=== PATIENT | female | born 1960 | race Caucasian/White ===

== ENCOUNTER 2017-11-17 19:28 | Emergency (ER) | payer OTHER, SELFPAY ==
[2017-11-17 19:33] VITALS: BP 158/81; PULSE 87; RESP 20; TEMP 36.4; O2SAT 100
--- NOTE | 2017-11-17 19:38 | DI.RAD.S_ITS ---
PROCEDURE: XR LUMBAR SPINE 2-3V INDICATIONS: fall onto brick, low back pain TECHNIQUE: 3 views of the lumbar spine were acquired. COMPARISON: [facility], , L-SPINE WITHOUT CONTRAST, 09/17/2013, 12:17. FINDINGS: Bones: 5 [id number] vertebrae are present. There is trace retrolisthesis of L1 on L2, L2 and L3, L3 on L4, slightly more prominent when compared to prior exam. There is stable grade 1 anterolisthesis of L4 on L5.. Prominent disc space narrowing is present at L5-S1 as well as L1-L2, L2-L3 and L4-L5. Foraminal narrowing is present at L5-S1. No vertebral body compression fractures. No suspicious bony lesions. Soft tissues: Overlying bowel gas pattern is normal. No suspicious soft tissue calcifications. IMPRESSION: Multilevel degenerative changes without visualized fracture. Dictated by: Hermelinda Markham M.D. on 11/17/2017 at 20:36 Approved by: Hermelinda Markham M.D. on 11/17/2017 at 20:38
[2017-11-17 21:47] VITALS: BP 114/55; PULSE 79; RESP 15; O2SAT 100
--- NOTE | 2017-11-17 22:52 | ED.BACK ---
HPI - Back Pain/Injury General Chief Complaint: Back Pain/Injury Stated Complaint: Fell, back/hip/leg pain Time Seen by Provider: 11/17/17 21:13 Source: patient Mode of arrival: ambulatory Limitations: no limitations History of Present Illness HPI Narrative: Patient is a 56-year-old female who presents with back pain. She fell backwards off of 1 breaks she was actually starting to climb up a ladder but she did not fall off the ladder she had taken 1 step up on the brick fell backwards landing on her sacrum. No numbness or tingling that is new. She does have some tingling in her left foot which she has from chronic ongoing back issues. No changes in bowel or bladder habits. No head injury no loss of consciousness. MD Complaint: back pain Related Data Home Medications Medication Instructions Recorded Confirmed Cetirizine Hydrochloride (Zyrtec) #0 04/26/10 PredniSONE (Deltasone) 60 mg PO Q DAY #0 04/26/10 Previous Rx's Medication Instructions Recorded cyclobenzaprine 5 mg PO TID PRN #10 tab 11/17/17 Allergies Allergy/AdvReac Type Severity Reaction Status Date / Time Penicillins Allergy Verified 11/17/17 19:37 Sulfa (Sulfonamide Allergy Verified 11/17/17 19:37 Antibiotics) Review of Systems Review of Systems GENERAL: Denies chills, fatigue, malaise, fever, sweats, travel HEENT: Denies sinus pain, ear pain, sore throat, difficulty swallowing, neck pain RESPIRATORY: Denies dyspnea, cough, wheezing, hemoptysis, sputum. CARDIOVASCULAR: Denies chest pain, palpitations, orthopnea, edema GASTROINTESTINAL: Denies nausea, vomiting, abdominal pain, diarrhea, constipation, melena. : Denies dysuria, frequency, incontinence, hematuria, urinary retention, flank pain. MUSCULOSKELETAL: See HPI SKIN: No rash, no erythema, no pruritus NEUROLOGIC: Denies weakness, dizziness, headache, numbness, change in speech, confusion PSYCHIATRIC: No concerning psychosocial issues. 12 point review of systems is negative except for those stated above and HPI [facility] Medical History Healthy adult (Acute) Social History Smoking Status: Never smoker alcohol intake: never substance use type: does not use Exam Initial Vital Signs Initial Vital Signs: Vital Signs Temperature 97.5 F L 11/17/17 19:33 Pulse Rate 87 11/17/17 19:33 Respiratory Rate 20 11/17/17 19:33 Blood Pressure 158/81 H 11/17/17 19:33 Pulse Oximetry 100 11/17/17 19:33 GENERAL: Well-appearing, well-nourished and in no acute distress. HEENT: Head atraumatic,EOMI, pupils reactive, neck is supple CARDIOVASCULAR: Regular rate and rhythm without murmurs, rubs or gallops. RESPIRATORY: Breath sounds equal bilaterally, no wheezes rales or rhonchi. ABDOMEN: Soft, nontender. Normoactive bowel sounds all 4 quadrants. No guarding or rebound. BACK: No midline or vertebral tenderness. She is tender more in her sacral and gluteal regions. No sign of trauma no contusion : No CVA tenderness EXTREMITIES: Normal range of motion, no clubbing or edema. Neurovascularly intact NEUROLOGICAL: Alert and oriented x4.Normal gait and speech. Cranial nerves II through XII grossly intact. Sensation intact in saddle area SKIN: Warm, dry, no laceration, no petechiae, no rashes or lesions. Course Orders Ordered: ED Orders 11/17/17 19:38 XR lumbar spine 2-3V Stat 11/17/17 22:58 XR sacrum coccyx min 2V Stat Discontinued Medications Cyclobenzaprine HCl (Flexeril 10 Mg Prepack) 1 bottle MISC SEEINSTR ONE Stop: 11/17/17 22:59 Last Admin: 11/17/17 23:10 Dose: 1 bottle Ketorolac Tromethamine (Toradol) 60 mg IM NOW ONE Stop: 11/17/17 22:59 Last Admin: 11/17/17 23:09 Dose: 60 mg Vital Signs - 8 hr 11/17/17 21:47 11/17/17 23:10 Temperature 97.6 F Pulse Rate 79 78 Respiratory Rate 15 18 Blood Pressure [Left Arm] 114/55 L 122/61 H Pulse Oximetry 100 100 MDM - Back Pain/Injury Imaging Data L spine x-ray: Radiologist's impression: PROCEDURE: XR LUMBAR SPINE 2-3V INDICATIONS: fall onto brick, low back pain TECHNIQUE: 3 views of the lumbar spine were acquired. COMPARISON: [facility], , L-SPINE WITHOUT CONTRAST, 09/17/2013, 12:17. FINDINGS: Bones: 5 [id number] vertebrae are present. There is trace retrolisthesis of L1 on L2, L2 and L3, L3 on L4, slightly more prominent when compared to prior exam. There is stable grade 1 anterolisthesis of L4 on L5.. Prominent disc space narrowing is present at L5-S1 as well as L1-L2, L2-L3 and L4-L5. Foraminal narrowing is present at L5-S1. No vertebral body compression fractures. No suspicious bony lesions. Soft tissues: Overlying bowel gas pattern is normal. No suspicious soft tissue calcifications. IMPRESSION: Multilevel degenerative changes without visualized fracture. Dictated by: Hermelinda Markham M.D. on 11/17/2017 at 20:36 Sacral XR: Attestation: I personally reviewed and interpreted this imaging study as follows: My impression: No fracture Discharge Plan Departure Patient Disposition: Home, Self-Care Clinical Impression: Sacral back pain Discharge Date/Time: 11/18/17 00:16 Interventions: ED Discharge Assessment Last Done: 11/18/17 00:16 Instructions: DI Sacroiliac Joint Dysfunction Activity Restrictions/Additional Instructions: *You have been diagnosed with sacral pain *What to do: Light activity is encouraged, no heavy lifting or strenuous activity. *Continue to take medications as directed -Flexeril 1 tablet every 8 hr if needed for muscle spasm -Motrin 800 mg every 8 hr if needed for *Follow up with your primary care provider in 2-3 days *Return to ER if you should have weakness in lower extremities, loss of urine or stool or any new, worsening or concerning symptoms Prescriptions: New cyclobenzaprine 5 mg tablet 5 mg PO TID PRN (Reason: muscle spasm) Qty: 10 RF: 0 No Action PredniSONE (Deltasone) 60 mg PO Q DAY Qty: 0 RF: 0 Cetirizine Hydrochloride (Zyrtec) Qty: 0 RF: 0
--- NOTE | 2017-11-17 22:58 | DI.RAD.S_ITS ---
PROCEDURE: XR SACRUM COCCYX MIN 2V INDICATIONS: fall backwards TECHNIQUE: 3 views of the sacrum and coccyx acquired. COMPARISON: None. FINDINGS: Bones: No fractures or dislocations. No suspicious bony lesions. Soft tissues: Visualized bowel gas pattern is normal. No suspicious soft tissue densities. IMPRESSION: Negative for fracture Dictated by: Khalif Wylie M.D. on 11/18/2017 at 7:58 Approved by: Khalif Wylie M.D. on 11/18/2017 at 7:59
[2017-11-17] MEDS: KETOROLAC 60 MG/2 ML VIAL IM (23:09)
[2017-11-17 23:10] VITALS: BP 122/61; PULSE 78; RESP 18; TEMP 36.4; O2SAT 100
[2017-11-17] MEDS: CYCLOBENZAPRINE 10 MG PREPACK 1 BOTTLE MISC (23:10)
== END 2017-11-18 00:16 | disposition home or self-care (01) ==
PROVIDERS: Emergency Provider Emergency Medicine
DX: M53.3 Sacrococcygeal disorders, not elsewhere classified (principal); W18.30XA Fall on same level, unspecified, initial encounter
CPT/HCPCS: 72100; 72220; 96372; 99283; J1885

== ENCOUNTER → 2023-03-23 11:56 | Outpatient (CLI) | payer OTHER, SELFPAY ==
--- NOTE | 2023-03-23 11:58 | DI.MRI.S_ITS ---
PROCEDURE: MR LUMBAR SPINE WO CON INDICATIONS: Radiculopathy, lumbar region TECHNIQUE: Noncontrast sagittal T1 spin echo and T2 fast echo, sagittal STIR, and T2 fast spin echo through the lumbar spine. In cases with scoliosis, additional coronal T2 fast spin echo may be performed. COMPARISON: [facility], , L-SPINE WITHOUT CONTRAST, 09/17/2013, 12:17. FINDINGS: Image quality: Diagnostic Alignment and Curvature: Stable grade 1 anterolisthesis of L4 on L5. Mild retrolisthesis of L2 on L3 measuring approximately 4 mm. Bone Marrow: Marrow is of normal overall signal. No acute vertebral body compression fractures. There has been interval progression of moderate-severe multilevel lumbar spondylitic changes since the prior MRI dated 2013. Significant disc space loss at L2-3. Disc desiccation throughout. Increased degenerative endplate changes and endplate osteophyte formation. Spinal Cord: Conus medullaris terminates at the L1 level. Visualized cord demonstrates normal signal and size. Paraspinous Soft Tissues: No paravertebral masses. T12-L1: No significant neuroforaminal or spinal canal stenosis. L1-L2: Bilateral facet arthropathy. Ligamentum flavum hypertrophy. Minimal disc bulge. No significant neuroforaminal or spinal canal stenosis. L2-L3: Severe disc space loss. Disc desiccation. Increased degenerative endplate changes and endplate osteophyte formation. Symmetric disc bulge. Moderate bilateral facet arthropathy and ligamentum flavum hypertrophy. There is mild spinal canal stenosis. Moderate-severe left and severe right neuroforaminal stenosis at this level. L3-L4: Moderate bilateral facet arthropathy. Moderate ligamentum flavum hypertrophy. Disc desiccation and symmetric disc bulge. Findings result in mild-moderate spinal canal stenosis. Severe left greater than right bilateral neuroforaminal stenosis. L4-L5: Anterolisthesis of L4 on L5. Moderate bilateral facet arthropathy. Ligamentum flavum hypertrophy. Mild-moderate spinal canal stenosis. Moderate bilateral neuroforaminal stenosis. L5-S1: Mild bilateral facet arthropathy. Symmetric disc bulge. Moderate bilateral neuroforaminal stenosis. No significant spinal canal stenosis. IMPRESSION: Lumbar spine without acute abnormalities. Significant interval progression of moderate-severe multilevel, multifactorial lumbar spondylosis as detailed above by vertebral body level. Findings are most pronounced at L2-3 and L3-4. Dictated by: Chu Winters M.D. on 03/24/2023 at 10:23 Approved by: Chu Winters M.D. on 03/24/2023 at 10:32
== END ==
PROVIDERS: Referring Provider Physician Assistant Medical; Visit Provider Physician Assistant Medical
DX: M47.26 Other spondylosis with radiculopathy, lumbar region (principal); M47.27 Other spondylosis with radiculopathy, lumbosacral region
CPT/HCPCS: 72148

== ENCOUNTER → 2023-05-15 14:24 | Outpatient (CLI) | payer OTHER, SELFPAY ==
--- NOTE | 2023-05-15 14:25 | DI.RAD.S_ITS ---
PROCEDURE: XR LUMBAR SPINE MIN 4V INDICATIONS: BACK PAIN TECHNIQUE: 5 views of the lumbar spine acquired, including flexion and extension views. COMPARISON: [facility], CR, XR LUMBAR SPINE 2-3V, 11/17/2017, 19:15. FINDINGS: Bones: 5 nonrib-bearing vertebrae are present. Gas grade 1 anterolisthesis of L4 on L5. Stepwise grade 1 retrolisthesis of L1 on L2, L2 on L3, L3 on L4. Severe disc height loss at L2-3. L3 through S1 facet arthrosis. Soft tissues: Overlying bowel gas pattern is normal. No suspicious soft tissue calcifications. Flexion/extension: There is normal range of motion, with preserved normal alignment. IMPRESSION: Body moderate to severe, multilevel degenerative disc disease and lower lumbar facet arthrosis. Dictated by: Chandrakant Bella M.D. on 05/15/2023 at 15:29 Approved by: Chandrakant Bella M.D. on 05/15/2023 at 15:32
== END ==
PROVIDERS: PCP Physician Assistant Medical; Referring Provider Physical Medicine & Rehabilitation; Visit Provider Physical Medicine & Rehabilitation
DX: M51.36 Other intervertebral disc degeneration, lumbar region (principal); M47.816 Spondylosis without myelopathy or radiculopathy, lumbar region; M47.817 Spondylosis without myelopathy or radiculopathy, lumbosacral region; M51.26 Other intervertebral disc displacement, lumbar region; M43.16 Spondylolisthesis, lumbar region; M54.9 Dorsalgia, unspecified
CPT/HCPCS: 72110; 99214

== ENCOUNTER 2023-06-26 09:12 | Outpatient (CLI) | payer OTHER, SELFPAY ==
[2023-06-26] VITALS (8 sets, daily range): BP systolic 164–204; BP diastolic 67–95; PULSE 57–80; RESP 11–18; TEMP 36.3; O2SAT 98–100
--- NOTE | 2023-06-26 10:15 | DI.RAD.S_ITS ---
PROCEDURE: PAIN L/SI FACET INJ/BLK 1STL INDICATIONS: FACET ARTHROPATHY COMPARISON: None. FINDINGS: Fluoroscopic spot filming was performed to verify placement of spinal needles at the right L3, L4 and L5 level(s), as labeled on the films. Appropriate location(s) of the needle tip(s) was confirmed by injection of iodinated contrast. IMPRESSION: Intra procedural examination demonstrating appropriate positions of the needles. Dictated by: Pepe Landon M.D. on 06/26/2023 at 13:31 Approved by: Pepe Landon M.D. on 06/26/2023 at 13:32
[2023-06-26] MEDS: MIDAZOLAM 2 MG/2 ML VIAL IV (10:45)
[2023-06-26] MEDS: iopamidoL 15 ML VIAL 3 ML INJ (10:50)
[2023-06-26] MEDS: BUPIVACAINE 0.5% (PF) 10 ML VIAL 2 ML INJ (10:50)
--- NOTE | 2023-06-26 11:05 | PM.PROC.IR.1 ---
Date/Time/Diagnoses Date of procedure: 06/26/23 Time of procedure: 11:05 Pre-procedure diagnosis: 1. FACET ARTHROPATHY Post-procedure diagnosis: same Procedure Notes Procedure: 1. Right L3, L4 and L5 MB BLOCKS Indications: Kati is referred by FARIBA Mccray for treatment of Right Axial LBP. Physician: Heriberto Pulido Total Fluoroscopy time (seconds): 12 Total sedation minutes: 16 Complications: none Procedure in detail & Post-procedure care: DESCRIPTION OF PROCEDURE Fluoroscopically guided, contrast-controlled right L3, L4 and L5 medial branch blocks with 0.5cc of 0.5% Marcaine. Following review of allergy and review of potential side effects and complications, including, but not necessarily limited to, infection, allergic reaction, local tissue breakdown, nerve injury, paralysis, stroke and possible , the patient indicated that the patient understood and agreed to proceed. An informed consent document was signed by the patient, witnessed by a nurse, and placed in the patient's chart. After review of previous anaesthesic history and IV conscious sedation the patient was deemed safe to proceed with today?s procedure with IV conscious sedation as ASA class II designation. Safety time-out was performed to confirm patient ID, procedure to be performed and site of procedure. IV sedation was accomplished with a combination of 2mg of Versed was administered by the RN after DO order, titrated to patient comfort during the course of the procedure while the patient remained responsive to all verbal commands In the prone position, following sterile prep and drape of the lumbar region, the right L3, L4 and L5 anatomical location of the medial branch of the dorsal ramus was identified fluoroscopically. Subsequently an anesthetic skin wheal using 1% lidocaine solution was initiated at each of the anatomical spots. Subsequently then a 22-gauge 3.5-inch spinal needle was atraumatically introduced and advanced under fluoroscopic guidance at each of the corresponding sites at the right L3, L4 and L5 MB. After negative aspiration, 0.2 cc of Isovue 200 was injected, confirming placement without vascular or intrathecal uptake. Subsequently then 0.5cc of 0.5% Marcaine solution was injected at each of the corresponding sites at the right L3, L4 and L5 medial branch locations. The patient tolerated the procedure well without signs or symptoms of complications. The procedure tolerated the procedure well without signs or symptoms of complications prior to transfer to the recovery area continued monitoring without incident. Post-procedure, the patient was monitored initiating provocative activities to measure the amount of relief from block of the facetogenic pain. The patient reported a VAS of 7 prior to the procedure and a post-procedure VAS of 1. It has been a pleasure to assist in the diagnostic and therapeutic care of your patient. POST OP INSTRUCTIONS The patient was provided with a Pain Log to complete over the next several hours and subsequent days prior to the patient's follow up with the ordering physician. If the patient has steno pool supervisor relief to the solution applied, then they may be a candidate for medial branch rhizotomy. The patient is aware, was provided, once again, with a Pain Log and will follow up with the referring physician for review and clinical correlation.
== END 2023-06-26 11:20 | disposition home or self-care (01) ==
LOC: RAD 09:12
PROVIDERS: PCP Physician Assistant Medical; Referring Provider Physical Medicine & Rehabilitation; Visit Provider Physical Medicine & Rehabilitation
DX: M47.816 Spondylosis without myelopathy or radiculopathy, lumbar region (principal)
CPT/HCPCS: 64493; 64494; 99152; J2250

== ENCOUNTER 2023-08-12 09:38 | Outpatient (CLI) | payer OTHER, SELFPAY ==
[2023-08-12] VITALS (8 sets, daily range): BP systolic 131–175; BP diastolic 63–84; PULSE 59–72; RESP 12–16; TEMP 35.9; O2SAT 98–100
--- NOTE | 2023-08-12 10:15 | DI.RAD.S_ITS ---
PROCEDURE: PAIN L/SI FACET INJ/BLK 1STL INDICATIONS: Right L3-L4 and L5 medial branch block SA COMPARISON: [facility], , PAIN L/SI FACET INJ/BLK 1STL, 06/26/2023, 10:48. FINDINGS: Fluoroscopic spot filming was performed to verify placement of spinal needles at the right L3, L4 and L5 level(s), as labeled on the films. Appropriate location(s) of the needle tip(s) was confirmed by injection of iodinated contrast. IMPRESSION: Fluoroscopic guidance utilized for a right medial branch block. Dictated by: Chandrakant Bella M.D. on 08/12/2023 at 13:56 Approved by: Chandrakant Bella M.D. on 08/12/2023 at 13:56
[2023-08-12] MEDS: MIDAZOLAM 2 MG/2 ML VIAL IV (10:41)
[2023-08-12] MEDS: iopamidoL 15 ML VIAL 3 ML INJ (10:45)
[2023-08-12] MEDS: LIDOCAINE 2% INJ SDV 5ML 5 ML INJ (10:46)
--- NOTE | 2023-08-12 10:56 | P.PCN_ITS ---
Date/Time/Diagnoses Date of procedure: 08/12/23 Time of procedure: 10:56 Pre-procedure diagnosis: 1. FACET ARTHROPATHY Post-procedure diagnosis: same Procedure Notes Procedure: 1. RIGHT L3, L4 AND L5 DIAGNOSTIC MB BLOCKS Indications: Kati is referred by FARIBA Mccray for treatment of Bilateral Axial LBP. Physician: Heriberto Pulido Total Fluoroscopy time (seconds): 7 Total sedation minutes: 11 Complications: none Procedure in detail & Post-procedure care: DESCRIPTION OF PROCEDURE Fluoroscopically guided, contrast-controlled right L3, L4 AND L5 medial branch blocks with 0.5cc of 2% Lidocaine. Following review of allergy and review of potential side effects and complications, including, but not necessarily limited to, infection, allergic reaction, local tissue breakdown, nerve injury, paralysis, stroke and possible , the patient indicated that the patient understood and agreed to proceed. An informed consent document was signed by the patient, witnessed by a nurse, and placed in the patient's chart. After review of previous anaesthesic history and IV conscious sedation the patient was deemed safe to proceed with today's procedure with IV conscious sedation as ASA class II designation. Safety time-out was performed to confirm patient ID, procedure to be performed and site of procedure. IV sedation was accomplished with a combination of 2mg of Versed was administered by the RN after DO order, titrated to patient comfort during the course of the procedure while the patient remained responsive to all verbal commands In the prone position, following sterile prep and drape of the lumbar region, the right L3, L4 AND L5 anatomical location of the medial branch of the dorsal ramus was identified fluoroscopically. Subsequently an anesthetic skin wheal using 1% lidocaine solution was initiated at each of the anatomical spots. Subsequently then a 22-gauge 3.5-inch spinal needle was atraumatically introduced and advanced under fluoroscopic guidance at each of the corresponding sites at the right L3, L4 and L5 MB. After negative aspiration, 0.2cc of Isovue 200 was injected, confirming placement without vascular or intrathecal uptake. Subsequently then 0.5cc of 2% Lidocaine solution was injected at each of the corresponding sites at the right L3, L4 and L5 medial branch locations. The patient tolerated the procedure well without signs or symptoms of complications. The patient tolerated the procedure well without signs or symptoms of complications prior to transfer to the recovery area continued monitoring without incident. Post-procedure, the patient was monitored initiating provocative activities to measure the amount of relief from block of the facetogenic pain. The patient reported a VAS of 7 prior to the procedure and a post-procedure VAS of 1. It has been a pleasure to assist in the diagnostic and therapeutic care of your patient. POST OP INSTRUCTIONS The patient was provided with a Pain Log to complete over the next several hours and subsequent days prior to the patient's follow up with the ordering physician. If the patient has boulevard glassware replacer relief to the solution applied, then they may be a candidate for medial branch rhizotomy. The patient is aware, was provided, once again, with a Pain Log and will follow up with the referring physician for review and clinical correlation
== END 2023-08-12 11:11 | disposition home or self-care (01) ==
LOC: RAD 09:38
PROVIDERS: PCP Physician Assistant Medical; Referring Provider Physical Medicine & Rehabilitation; Visit Provider Physical Medicine & Rehabilitation
DX: M47.816 Spondylosis without myelopathy or radiculopathy, lumbar region (principal)
CPT/HCPCS: 64493; 64494; 99152; J2250

== ENCOUNTER 2023-11-11 07:26 | Outpatient (CLI) | payer OTHER, SELFPAY ==
[2023-11-11] VITALS (11 sets, daily range): BP systolic 141–168; BP diastolic 67–88; PULSE 55–69; RESP 10–18; TEMP 36.6; O2SAT 97–100
--- NOTE | 2023-11-11 08:00 | DI.RAD.S_ITS ---
PROCEDURE: PAIN L/S MED/LAT N RFA INDICATIONS: SPONDYLOSIS COMPARISON: None. FINDINGS: Fluoroscopic spot filming was performed to verify placement of spinal needles at the L3, L4 and L5 level(s), as labeled on the films. Appropriate location(s) of the needle tip(s) was confirmed by injection of iodinated contrast. IMPRESSION: Fluoro guidance was provided intraoperatively for right L3, L4 and L5 medial branch RFA performed by ordering physician. Dictated by: Howard Gifford M.D. on 11/11/2023 at 14:46 Approved by: Howard Gifford M.D. on 11/11/2023 at 14:48
[2023-11-11] MEDS: MIDAZOLAM 2 MG/2 ML VIAL IV (08:20)
[2023-11-11] MEDS: fentaNYL 100 MCG/2 ML INJ 25 MCG IV ×2 (08:28→08:36)
[2023-11-11] MEDS: LIDOCAINE 1% 20 ML 5 ML INJ (08:29)
[2023-11-11] MEDS: BUPIVACAINE 0.5% (PF) 10 ML VIAL 5 ML INJ (08:29)
--- NOTE | 2023-11-11 09:00 | P.PCN_ITS ---
Date/Time/Diagnoses Date of procedure: 11/11/23 Time of procedure: 09:00 Pre-procedure diagnosis: 1. RECALCITRANT FACET ARTHROPATHY Post-procedure diagnosis: same Procedure Notes Procedure: 1. RIGHT L3, L4 AND L5 MEDIAL BRANCH RADIOFREQUENCY NEUROTOMY Indications: Kati is referred by FARIBA Mccray for treatment of facet arthropathy. Physician: Heriberot Pulido Total Fluoroscopy time (seconds): 21 Total sedation minutes: 35 Complications: none Procedure in detail & Post-procedure care: DESCRIPTION OF PROCEDURE Right L2, L3 and L4 medial branch radio-frequency neurotomy The patient is well known to this clinic having undergone previous facet injections with good but temporary relief. The patient has experienced appropriate, concordant relief with previous facet and median branch blocks but the patient's pain has been recalcitrant to further conservative measures. Therefore, based upon the patient's relief and persistent symptoms, the patient is considered an appropriate candidate for facet rhizotomy. All of the patient's questions regarding the risks versus benefits of the procedure, including, but not limited to, bleeding, infection, temporary as well as lasting nerve injury, paralysis, stroke, and , as well treatment alternatives were answered to satisfaction. After obtaining informed consent, denial of pertinent drug allergies, as well as being made aware of the potential risks of bleeding, infection, spinal cord trauma, paralysis, temporary and permanent nerve damage, seizure, stroke, and possible , the patient was brought to the fluoroscopy suite and positioned prone on the fluoroscopy table. The lumbar region was prepped with Betadine and covered with a fenestrated drape in the usual sterile fashion. Appropriate monitors applied including pulse oximeter, pulse, and blood pressure for regular monitoring throughout the procedure. After review of previous anaesthesic history and IV conscious sedation the patient was deemed safe to proceed with today?s procedure with IV conscious sedation as ASA class II designation. Safety time-out was performed to confirm patient ID, procedure to be performed and site of procedure. IV sedation was accomplished with a combination of 2mg of Versed and 50mcg of Fentanyl administered by the RN after DO order, titrated to patient comfort during the course of the procedure while the patient remained responsive to all verbal commands. After local infiltration using 1% lidocaine, under fluoroscopic guidance, a 10- cm RF insulated needle with a 10-mm active tip was positioned parallel to the junction of the right the superior articulating process where the L3 medial branch resides. Needle placement was confirmed with sensory stimulation at 50 Hz, with motor stimulation of .5v on the right which produced local stimulation without radicular component. The stimulation was then increased to 2v with, once again, only local multifidus stimulation without radicular component. This was then followed by two discreet lesions performed at 80 degrees Celsius for 90 seconds each. The needle was then removed and the identical procedure was performed along the length of the right L4 medial branch with motor stimulation at .7v on the right. The identical procedure was once again performed along the length of the right L5 and medial branch with motor stimulation of .5v on the right. The patient tolerated the procedure well without signs or symptoms of complications prior to transfer to the recovery area continued monitoring without incident. The patient was then transferred to the recovery area where they were observed for an appropriate period of time after the injection. The patient reported a VAS score of 8 prior to the procedure and a post-procedure VAS of 2. POST OP INSTRUCTIONS The patient was provided a Pain Log to continue to record the patient's response to the target-specific procedure prior to the patient's follow-up visit with the referring physician. Additionally, specific post-injection care instructions and a contact number to our office were provided if concerns arise regarding possible complications associated with the procedure are suspected.
== END 2023-11-11 09:07 | disposition home or self-care (01) ==
LOC: RAD 07:27
PROVIDERS: PCP Physician Assistant Medical; Referring Provider Physical Medicine & Rehabilitation; Visit Provider Physical Medicine & Rehabilitation
DX: M47.816 Spondylosis without myelopathy or radiculopathy, lumbar region (principal)
CPT/HCPCS: 64635; 64636; 99152; 99153; J2250; J3010

== ENCOUNTER 2024-03-23 09:36 | Outpatient (CLI) | payer OTHER, SELFPAY ==
[2024-03-23] VITALS (9 sets, daily range): BP systolic 158–177; BP diastolic 69–85; PULSE 62–80; RESP 12–19; TEMP 36.9; O2SAT 97–100
--- NOTE | 2024-03-23 09:37 | DI.RAD.S_ITS ---
PROCEDURE: PAIN L INTERLAMINAR/CAUDAL INJ INDICATIONS: para Right L3/4 TL [place] COMPARISON: None. FINDINGS/IMPRESSION: Fluoroscopic spot filming was performed to verify placement of spinal needles at the right L3-L4 level(s), as labeled on the films. Appropriate location(s) of the needle tip(s) was confirmed by injection of iodinated contrast. Dictated by: Franc Padron M.D. on 03/23/2024 at 14:54 Approved by: Franc Padron M.D. on 03/23/2024 at 14:54
[2024-03-23] MEDS: MIDAZOLAM 2 MG/2 ML VIAL IV (10:53)
[2024-03-23] MEDS: iopamidoL 15 ML VIAL 3 ML INJ (10:56)
[2024-03-23] MEDS: BETAMETHASONE 30 MG/5 ML MDV 12 MG INJ (10:56)
[2024-03-23] MEDS: BUPIVACAINE 0.25% (PF) VIAL 2 ML INJ (10:56)
[2024-03-23] MEDS: DEXAMETHASONE 10 MG/ML VIAL INJ (10:57)
--- NOTE | 2024-03-23 11:13 | P.PCN_ITS ---
Date/Time/Diagnoses Date of procedure: 03/23/24 Time of procedure: 11:13 Pre-procedure diagnosis: 1. HNP WITH RADICULAR FEATURES, 2. MULTILEVEL CENTRAL STENOSIS, Post-procedure diagnosis: same Procedure Notes Procedure: 1. FLUOROSCOPICALLY GUIDED CONTRAST CONTROLLED INTERLAMINAR EPIDURAL STEROID INJECTION - L3/4 Indications: Kati is referred by FARIBA Mccray for treatment of Bilateral Foraminal Stenosis L>R LE symptoms. Physician: Heriberto Pulido Total Fluoroscopy time (seconds): 14 Total sedation minutes: 16 Complications: none Procedure in detail & Post-procedure care: FINDINGS Multilevel Central Spinal Stenosis with Nerve Root Compression DESCRIPTION OF PROCEDURE Fluoroscopically guided, contrast-controlled L3/4 translaminar epidural steroid injection. Following review of allergy and review of potential side effects and complications, including, but not necessarily limited to, infection, allergic reaction, local tissue breakdown, temporary as well as permanent nerve injury, paralysis, stroke and possible , the patient indicated that the patient understood and agreed to proceed. An informed consent document was signed by the patient, witnessed by a nurse, and placed in the patient's chart. Additionally, other treatment options including modalities, medications, and physical therapy were reviewed with the patient. After review of previous anaesthesic history and IV conscious sedation the patient was deemed safe to proceed with today?s procedure with IV conscious sedation as ASA class II designation. Safety time-out was performed to confirm p atient ID, procedure to be performed and site of procedure. IV sedation was accomplished with a combination of 2mg of Versed was administered by the RN after DO order, titrated to patient comfort during the course of the procedure while the patient remained responsive to all verbal commands. In the prone position, following sterile prep and drape of the lumbar region, the L3/4 translaminar space was identified fluoroscopically. The skin was anesthetized via a 25-gauge, 1.5-inch needle with 1% lidocaine solution. At this point, a 22-gauge short bevel spinal needle was atraumatically introduced and advanced under fluoroscopic guidance into the region of the L3/4 translaminar space. Depth was confirmed on lateral view. Radiological data, including multiple fluoroscopic views of the lumbar spine, reveal a spinal needle at the L3/4 translaminar space. Lateral views then show placement of the needle in the epidural space. Subsequent views show contrast material flowing superiorly and inferiorly in the epidural space. No vascular or intrathecal uptake is observed. At this point, using loss of resistance technique with saline and air, the epidural space was entered. This was confirmed following negative aspiration with injection of approximately 1.5 cc of Isovue 200, showing excellent epidural flow without vascular or intrathecal uptake. At this point, 1cc of 1% lidocaine solution combined with 2cc or 10mg of dexamethasone and 6mg of betamethasone was injected without incident. The patient tolerated the procedure well without signs or symptoms of complications prior to transfer to the recovery area continued monitoring without incident. The patient was then transferred to the recovery area where they were observed for an appropriate period of time after the injection. The patient reported a VAS score of 6 prior to the procedure and a post- procedure VAS of 0. POST OP INSTRUCTIONS The patient was provided a Pain Log to continue to record their response to the target-specific procedure prior to follow-up visit with their referring physician. Additionally, specific post-injection care instructions and a contact number to our office were provided if concerns arise regarding possible complications associated with the procedure are suspected.
== END 2024-03-23 11:30 | disposition home or self-care (01) ==
LOC: RAD 09:37
PROVIDERS: PCP Physician Assistant Medical; Referring Provider Physical Medicine & Rehabilitation; Visit Provider Physical Medicine & Rehabilitation
DX: M51.16 Intervertebral disc disorders with radiculopathy, lumbar region (principal); M48.061 Spinal stenosis, lumbar region without neurogenic claudication
CPT/HCPCS: 62323; 99152; J0702; J1100; J2250; J3490